=== PATIENT | female | born 1975 | race Caucasian/White ===

== ENCOUNTER 2018-09-27 08:32 | Emergency (ER) | payer OTHER ==
[2018-09-27 08:36] VITALS: TEMP 98; O2SAT 100
[2018-09-27 08:37] VITALS: BMI 27.4
--- NOTE | 2018-09-27 09:50 | ED PDOC ---
HPI: Female Pain Time Seen by Provider: 09/27/18 08:45 Chief Complaint (Nursing): Abdominal Pain Chief Complaint (Provider): Pelvic Pain History Per: Patient History/Exam Limitations: no limitations Onset/Duration Of Symptoms: Days (x10) Current Symptoms Are (Timing): Still Present Additional Complaint(s): 43 y/o female with with a PMHx of DM presents to the ED for evaluation of right sided pelvic pain, onset ten days ago. Patient reports pain is constant and loca lized and does not radiate to the groin area. Patient denies any associated complaints including vomiting, diarrhea, fever, urinary symptoms, vaginal discharge and vaginal bleeding. Patient reports of taking Ibuprofen for pain relief multiple times since onset. Patient additionally notes of being compliant with metaformin DM medication. PMD: [facility] Past Medical History Reviewed: Historical Data, Nursing Documentation, Vital Signs Vital Signs: Last Vital Signs Temp 98.0 F 09/27/18 08:35 Pulse 87 09/27/18 08:35 Resp 16 09/27/18 08:35 BP 118/72 09/27/18 08:35 Pulse Ox 100 09/27/18 08:35 - Medical History PMH: Diabetes, Gall Bladder Disease Denies: Chronic Kidney Disease - Surgical History Surgical History: Cholecystectomy - Family History Family History: States: Unknown Family Hx - Home Medications Home Medications: Ambulatory Orders Medication Instructions Recorded Cholecalciferol [Vitamin D] 1,000 iu PO DAILY 11/01/14 Loratadine 10 mg PO DAILY PRN 11/01/14 Metformin HCl [Metformin] 1,000 mg PO BID 11/01/14 Docusate [Colace] 100 mg PO Q8 11/02/14 Oxycodone HCl/Acetaminophen 5 - 325 mg PO Q8 PRN 11/02/14 [Percocet 325 mg-5 mg] Ibuprofen [Motrin] 600 mg PO Q6 PRN #20 tab 09/27/18 - Allergies Allergies/Adverse Reactions: Allergies Allergy/AdvReac Type Severity Reaction Status Date / Time No Known Allergies Allergy Verified 11/01/14 10:03 Review of Systems ROS Statement: Except As Marked, All Systems Reviewed And Found Negative Constitutional: Negative for: Fever Gastrointestinal: Negative for: Vomiting, Diarrhea Genitourinary Female: Positive for: Pelvic Pain. Negative for: Dysuria, Frequency, Hematuria, Vaginal Discharge, Vaginal Bleeding Physical Exam - Reviewed Nursing Documentation Reviewed: Yes Vital Signs Reviewed: Yes - Physical Exam Appears: Positive for: No Acute Distress Head Exam: Positive for: ATRAUMATIC, NORMOCEPHALIC Skin: Positive for: Normal Color, Warm, Dry Eye Exam: Positive for: Normal appearance, EOMI, PERRL Neck: Positive for: Normal, Painless ROM, Supple Cardiovascular/Chest: Positive for: Regular Rate, Rhythm. Negative for: Murmur Respiratory: Positive for: Normal Breath Sounds. Negative for: Respiratory Distress Gastrointestinal/Abdominal: Positive for: Tenderness (Right inguinal tenderness. no swelling or abdominal tenderness. ) Back: Positive for: Normal Inspection. Negative for: L CVA Tenderness, R CVA Tenderness, Vertebral Tenderness Extremity: Positive for: Normal ROM. Negative for: Deformity Neurological/Psych: Positive for: Awake, Alert, Oriented - Laboratory Results Result Diagrams: 09/27/18 10:00 09/27/18 10:00 - ECG O2 Sat by Pulse Oximetry: 100 (RA) Pulse Ox Interpretation: Normal - Progress Re-evaluation Time: 13:47 Condition: Re-examined, Improved Medical Decision Making Medical Decision Making: Time: 18 Impression: Right groin pain and right pelvic pain Differentials include but not limited to ovarian cysts, complications, UTI Less likely but rule out inguinal hernia Plan: -- BMP -- ED Urine -- ED Urine Dipstick -- CBC with Differentials -- Toradol 30 mg IM -- US Transvaginal -- ED Preg resulted negative -- Urine Dip resulted negative. Time: 1221 US RESULTS COMPARISON: TECHNIQUE: FINDINGS: The uterus measures 7.8 x 3.3 x 3.9 centimeters. The endometrium measures 5 millimeters. There is a along lower posterior fibroid measuring 1.7 centimeters. The ovaries have a normal sonographic appearance. There is no free fluid the pelvis. IMPRESSION: Lower posterior myoma. Time: 1230 Plan: -- CT ABD/PELVIS IV CONTRAST ONLY Time: 1340 CT RESULTS FINDINGS: LOWER THORAX: Unremarkable. LIVER: Unremarkable. No gross lesion or ductal dilatation. GALLBLADDER AND BILE DUCTS: Unremarkable. PANCREAS: Unremarkable. No gross lesion or ductal dilatation. SPLEEN: Unremarkable. ADRENALS: Unremarkable. No mass. KIDNEYS AND URETERS: Unremarkable. No hydronephrosis. No solid mass. VASCULATURE: Unremarkable. No aortic aneurysm. No aortic atherosclerotic calcification or mural plaque present. BOWEL: Unremarkable. No obstruction. No gross mural thickening. APPENDIX: Normal appendix. PERITONEUM: Unremarkable. No free fluid. No free air. LYMPH NODES: Unremarkable. No enlarged lymph nodes. BLADDER: Unremarkable. REPRODUCTIVE: Unremarkable. BONES: No acute fracture. OTHER FINDINGS: None. IMPRESSION: Unremarkable contrast enhanced CT of the abdomen and pelvis. ____ Scribe Attestation: Documented by Georgette Durham, acting as a scribe for Bernard Andrews MD. Provider Scribe Attestation: All medical record entries made by the Scribe were at my direction and personally dictated by me. I have reviewed the chart and agree that the record accurately reflects my personal performance of the history, physical exam, medical decision making, and the department course for this patient. I have also personally directed, reviewed, and agree with the discharge instructions and disposition. Disposition - Clinical Impression Clinical Impression: Pelvic pain - Patient ED Disposition Is Patient to be Admitted: No Doctor Will See Patient In The: Office Counseled Patient/Family Regarding: Studies Performed, Diagnosis, Need For Followup - Disposition Referrals: [facility] [Outside] Disposition: Routine/Home Disposition Time: 13:50 Condition: GOOD Additional Instructions: SHERICE DE JESUS, thank you for letting us take care of you today. Your provider was Bernard Andrews MD and you were treated for ABD PAIN. The emergency medical care you received today was directed at your acute symptoms. If you were prescribed any medication, please fill it and take as directed. It may take several days for your symptoms to resolve. Return to the Emergency Department if your symptoms worsen, do not improve, or if you have any other problems. Please contact your doctor or call one of the physicians/clinics you have been referred to that are listed on the Patient Visit Information form that is included in your discharge packet. Bring any paperwork you were given at discharge with you along with any medications you are taking to your follow up visit. Our treatment cannot replace ongoing medical care by a primary care provider outside of the emergency department. Thank you for allowing the [facility] team to be part of your care today. If you had an X-Ray or CT scan: A Radiologist will review the ED reading if any change in treatment is needed we will contact you. If you had a blood, urine, or wound culture: It will take several days for the results, if any change in treatment is needed we will contact you. If you had an STI test: It will take 48 hours for the results. Please call after 1 week if you have not heard back. Prescriptions: Ibuprofen [Motrin] 600 mg PO Q6 PRN #20 tab PRN Reason: Pain, Moderate (4-7) Instructions: Acute Pelvic Pain (DC) Forms: [employer] (Romanian)
[2018-09-27 10:31] LABS: BASO % 0.6 % (0.0-2.0); EOS # 0.1 K/uL (0.0-0.7); EOS % 1.8 % (0.0-4.0); HEMOGLOBIN 13.6 g/dL (12.0-16.0); LYMPH % 26.2 % (20.0-40.0); MEAN CELL VOLUME 88.9 fl (81.0-99.0); MEAN CORPUSCULAR HEMOGLOBIN 29.8 pg (27.0-31.0); MEAN CORPUSCULAR HGB CONC 33.5 g/dL (33.0-37.0); MEAN PLATELET VOLUME 9.6 fl (7.2-11.7); MONO # 0.7 K/uL (0.0-0.8); MONO % 9.8 % (0.0-10.0); NEUT # 4.7 K/uL (1.8-7.0); NEUT % 61.6 % (50.0-75.0); NRBC % 0.1 % (0.0-0.0); RBC 4.56 Mil/uL (3.80-5.20); WHITE BLOOD COUNT 7.6 K/uL (4.8-10.8)
[2018-09-27 10:38] LABS: BLOOD UREA NITROGEN 11 mg/dl (7-17); CALCIUM 8.9 mg/dL (8.4-10.2); GFR NON-AFRICAN AMERICAN > 60
--- NOTE | 2018-09-27 12:24 | US ---
Date of service: 09/27/2018 PROCEDURE: HISTORY: right pelvic pain COMPARISON: TECHNIQUE: FINDINGS: The uterus measures 7.8 x 3.3 x 3.9 centimeters. The endometrium measures 5 millimeters. There is a along lower posterior fibroid measuring 1.7 centimeters. The ovaries have a normal sonographic appearance. There is no free fluid the pelvis. IMPRESSION: Lower posterior myoma.
[2018-09-27] MEDS ORDERED: Sodium Chloride 0.9% 50 ML IV ONE (12:41)
[2018-09-27] MEDS ORDERED: Iohexol 300 100 ML IJ ONE (12:41)
--- NOTE | 2018-09-27 13:43 | CT ---
Date of service: 09/27/2018 PROCEDURE: CT Abdomen and Pelvis with contrast HISTORY: right groin pain COMPARISON: None. TECHNIQUE: Contrast dose: Radiation dose: Total exam DLP = 675.7 mGy-cm. This CT exam was performed using one or more of the following dose reduction techniques: Automated exposure control, adjustment of the mA and/or kV according to patient size, and/or use of iterative reconstruction technique. FINDINGS: LOWER THORAX: Unremarkable. LIVER: Unremarkable. No gross lesion or ductal dilatation. GALLBLADDER AND BILE DUCTS: Unremarkable. PANCREAS: Unremarkable. No gross lesion or ductal dilatation. SPLEEN: Unremarkable. ADRENALS: Unremarkable. No mass. KIDNEYS AND URETERS: Unremarkable. No hydronephrosis. No solid mass. VASCULATURE: Unremarkable. No aortic aneurysm. No aortic atherosclerotic calcification or mural plaque present. BOWEL: Unremarkable. No obstruction. No gross mural thickening. APPENDIX: Normal appendix. PERITONEUM: Unremarkable. No free fluid. No free air. LYMPH NODES: Unremarkable. No enlarged lymph nodes. BLADDER: Unremarkable. REPRODUCTIVE: Unremarkable. BONES: No acute fracture. OTHER FINDINGS: None. IMPRESSION: Unremarkable contrast enhanced CT of the abdomen and pelvis.
[2018-09-27 14:20] VITALS: BP 116/74; PULSE 82; RESP 18
== END 2018-09-27 14:18 | disposition home or self-care (01) ==
LOC: H.ER 08:32
DX: R10.2 Pelvic and perineal pain (principal); E11.9 Type 2 diabetes mellitus without complications; Z79.84 Long term (current) use of oral hypoglycemic drugs
CPT/HCPCS: 74177; 76830; 80048; 81025; 85025; 96374; 99284; J1885; Q9967